=== PATIENT | male | born 1975 | race African-American/Black ===

== ENCOUNTER 2023-03-26 22:19 | Emergency (ER) | payer OTHER ==
[2023-03-26 22:32] VITALS: BP 121/80; PULSE 92; RESP 16; TEMP 98.1; BMI 32.1
[2023-03-27 02:08] LABS: HEMATOCRIT 43.3 % (35.4-49); HEMOGLOBIN 14.9 GM/dL (11.7-16.9); MCH 29.3 pg (25.7-33.7); MCHC 34.4 g/dl (32.0-35.9); MEAN CELL VOLUME 85.2 fl (80-96); RBC 5.08 M/mm3 (4.00-5.60); RDW 14.6 % (11.9-15.9); WHITE BLOOD COUNT 7.2 K/mm3 (4.0-10.0)
[2023-03-27 02:09] LABS: BASO % 0.9 % (0-2.0); EOS % 4.2 % (0-4.5); LYMPH % 30.7 % (8-40); MEAN PLT VOLUME 7.6 fl (7.5-11.1); MONO % 6.6 % (3.8-10.2); NEUT % 57.6 % (42.8-82.8); PLATELET COUNT 234 10^3/uL (134-434)
[2023-03-27 02:10] LABS: POTASSIUM 4.3 mmol/L (3.5-5.1)
[2023-03-27 02:12] LABS: ALBUMIN 4.6 g/dl (3.4-5.0); BLOOD UREA NITROGEN 11.6 mg/dL (7-18); CALCIUM 10.3 mg/dL (8.5-10.1)
[2023-03-27 02:16] LABS: CREATININE 0.9 mg/dL (0.55-1.3)
[2023-03-27 02:17] LABS: TOT PROT 7.9 g/dl (6.4-8.2)
[2023-03-27 02:18] LABS: BILIRUBIN,TOTAL 0.4 mg/dL (0.2-1)
== END 2023-03-27 03:53 | disposition home or self-care (01) ==
LOC: JER 22:19
DX: R13.10 Dysphagia, unspecified (principal); R68.2 Dry mouth, unspecified
CPT/HCPCS: 36415; 70360-TC-FY; 71046-TC-FY; 80053; 84484; 85025; 93005; 93010; 99285-25